=== PATIENT | male | born 1965 | race African-American/Black ===

== ENCOUNTER → 2017-02-05 | Outpatient (CLI) | payer OTHER ==
--- NOTE | 2017-02-05 11:14 | REP ---
Chest x-ray: Two views. History: Positive QuantiFERON. Question TB. No comparison views. Findings: The lungs are symmetrically aerated and free of infiltrate. Pleural angles are sharp. Heart size is normal. Hilar and mediastinal contours are unremarkable. Pulmonary vasculature is not increased. There are degenerative changes in the thoracic spine. No significant bony abnormality is seen. Impression: No active disease seen radiographically. Signed by Olayinka Ram MD 02/05/2017 12:33 P
== END ==
LOC: M RAD 09:29
PROVIDERS: ATTEND Surgery
DX: R76.12 Nonspecific reaction to cell mediated immunity measurement of gamma interferon antigen response without active tuberculosis (principal)